=== PATIENT | male | born 1975 | race Caucasian/White ===

== ENCOUNTER 2018-12-03 22:33 | Emergency (ER) | payer OTHER ==
--- NOTE | 2018-12-03 23:08 | ED ---
General Adult HPI - General Chief complaint: Neuro Symptoms/Deficit Stated complaint: Lft arm Numbness/Nausea Time Seen by Provider: 12/03/18 22:53 Source: patient Mode of arrival: wheelchair Limitations: no limitations - History of Present Illness Initial comments: Dictation was produced using [employer] dictation software. please excuse any grammatical, word or spelling errors. Chief Complaint: 43-year-old male with no significant past medical history presents with left-sided paresthesias History of Present Illness: Patient is a 43-year-old male. Patient was driving up to [place] for . He states during the drive he was experiencing heaviness to his left upper and left lower extremity. Patient denies any medical problems. Denies any history of stroke or CVA. Patient states his symptoms lasted for several minutes. He is asymptomatic at this time. Denies any numbness tingling or paresthesias to his arms or legs. Patient has any facial droop. was at bedside denies any signs of aphasia during the incident. She otherwise has been feeling well. He does feel little deconditioned given that his job is very sedentary. The ROS documented in this emergency department record has been reviewed and confirmed by me. Those systems with pertinent positive or negative responses have been documented in the HPI. All other systems are other negative and/or noncontributory. PHYSICAL EXAM: General Impression: Alert and oriented x3, not in acute distress HEENT: Normocephalic atraumatic, extra-ocular movements intact, pupils equal and reactive to light bilaterally, mucous membranes moist. Cardiovascular: Heart regular rate and rhythm, S1&S2 audible, no murmurs, rubs or gallops Chest: Lungs clear to auscultation bilaterally, no rhonchi, no wheeze, no rales Abdomen: Bowel sounds present, abdomen soft, non-tender, non-distended, no organomegaly Musculoskeletal: Pulses present and equal in all extremities, no peripheral edema Motor: no focal deficits noted Neurological: CN II-XII grossly intact, no focal motor or sensory deficits noted Skin: Intact with no visualized rashes Psych: Normal affect and mood ED course: 43-year-old male presents with neuro symptoms. Patient has NIH of 0. He does report some heaviness feeling to his left palm. He denies any pain complaints. Vital signs upon arrival are within acceptable limits. Patient's clinical presentation is very atypical for a TIA versus CVA at this time. Nonetheless, ED work was performed. CBC, coag panel, metabolic panel, electrolytes were obtained showing no acute processes. Cardiac enzymes negative. Computed tomography scan of the brain and chest x-ray are unremarkable. Patient reevaluated and denies any symptoms at this time. Extensive discussion was held with patient and patient's . Patient's symptoms more consistent with neuropathy. His symptoms are very vague and do not localize to any part of the neurologic system. As the patient what signs and symptoms to look for that would discuss stroke versus TIA. Patient agrees that his symptoms are consistent with cerebrovascular accident. Patient clear for discharge. Return parameters were discussed in detail with patient and patient's family member. They will go nearby and will return to the emergency department immediately with any hesitations of his symptoms. Patient given aspirin. Patient discharged EKG interpretation: Ventricular rate 62, normal sinus rhythm,. Interval 152, QS 94, QTC 46. No UT prolongation, no QTC prolongation, no ST or T-wave changes noted. Overall, this EKG is unremarkable - Related Data Home Medications Medication Instructions Recorded Confirmed No Known Home Medications 12/03/18 12/03/18 Allergies Allergy/AdvReac Type Severity Reaction Status Date / Time No Known Allergies Allergy Verified 12/03/18 23:03 Review of Systems ROS Statement: Those systems with pertinent positive or pertinent negative responses have been documented in the HPI. ROS Other: All systems not noted in ROS Statement are negative. Past Medical History Past Medical History: No Reported History History of Any Multi-Drug Resistant Organisms: None Reported Additional Past Surgical History / Comment(s): right leg surgery, rotator cuff left shoulder. Past Psychological History: No Psychological Hx Reported Smoking Status: Never smoker Past Alcohol Use History: Occasional Past Drug Use History: None Reported General Exam Limitations: no limitations Course Vital Signs 12/03/18 12/03/18 12/03/18 22:37 22:46 23:00 Temperature 97.9 F Pulse Rate 75 60 Respiratory 18 18 Rate Blood Pressure 133/86 133/82 O2 Sat by Pulse 98 97 97 Oximetry 12/03/18 12/03/18 12/03/18 23:15 23:30 23:45 Temperature Pulse Rate 58 L 66 61 Respiratory 14 14 20 Rate Blood Pressure 139/88 122/83 111/79 O2 Sat by Pulse 98 98 97 Oximetry 12/04/18 12/04/18 00:00 00:15 Temperature Pulse Rate 56 L 59 L Respiratory 18 20 Rate Blood Pressure 112/73 108/79 O2 Sat by Pulse 96 96 Oximetry Medical Decision Making - Lab Data Result diagrams: 12/03/18 22:50 12/03/18 22:50 Lab Results 12/03/18 12/03/18 12/03/18 Range/Units 22:50 22:50 22:50 WBC 8.3 (3.8-10.6) k/uL RBC 5.27 (4.30-5.90) m/uL Hgb 15.5 (13.0-17.5) gm/dL Hct 45.0 (39.0-53.0) % MCV 85.5 (80.0-100.0) fL MCH 29.3 (25.0-35.0) pg MCHC 34.3 (31.0-37.0) g/dL RDW 13.2 (11.5-15.5) % Plt Count 180 (150-450) k/uL Neutrophils % 55 % Lymphocytes % 35 % Monocytes % 5 % Eosinophils % 2 % Basophils % 0 % Neutrophils # 4.6 (1.3-7.7) k/uL Lymphocytes # 2.9 (1.0-4.8) k/uL Monocytes # 0.5 (0-1.0) k/uL Eosinophils # 0.1 (0-0.7) k/uL Basophils # 0.0 (0-0.2) k/uL PT 10.0 (9.0-12.0) sec INR 0.9 (<1.2) APTT 25.1 (22.0-30.0) sec Sodium 144 (137-145) mmol/L Potassium 4.1 (3.5-5.1) mmol/L Chloride 111 H (98-107) mmol/L Carbon Dioxide 22 (22-30) mmol/L Anion Gap 11 mmol/L BUN 23 H (9-20) mg/dL Creatinine 1.05 (0.66-1.25) mg/dL Est GFR (CKD-EPI)AfAm >90 (>60 ml/min/1.73 sqM) Est GFR (CKD-EPI)NonAf 86 (>60 ml/min/1.73 sqM) Glucose 99 (74-99) mg/dL Calcium 10.1 (8.4-10.2) mg/dL Ionized Calcium Cassius (4.5-5.3) mg/dL Phosphorus (2.5-4.5) mg/dL Magnesium (1.6-2.3) mg/dL Total Bilirubin 0.7 (0.2-1.3) mg/dL AST 32 (17-59) U/L ALT 47 (21-72) U/L Alkaline Phosphatase 89 (38-126) U/L Troponin I (0.000-0.034) ng/mL Total Protein 8.0 (6.3-8.2) g/dL Albumin 4.9 (3.5-5.0) g/dL 12/03/18 12/03/18 Range/Units 22:50 23:35 WBC (3.8-10.6) k/uL RBC (4.30-5.90) m/uL Hgb (13.0-17.5) gm/dL Hct (39.0-53.0) % MCV (80.0-100.0) fL MCH (25.0-35.0) pg MCHC (31.0-37.0) g/dL RDW (11.5-15.5) % Plt Count (150-450) k/uL Neutrophils % % Lymphocytes % % Monocytes % % Eosinophils % % Basophils % % Neutrophils # (1.3-7.7) k/uL Lymphocytes # (1.0-4.8) k/uL Monocytes # (0-1.0) k/uL Eosinophils # (0-0.7) k/uL Basophils # (0-0.2) k/uL PT (9.0-12.0) sec INR (<1.2) APTT (22.0-30.0) sec Sodium (137-145) mmol/L Potassium (3.5-5.1) mmol/L Chloride (98-107) mmol/L Carbon Dioxide (22-30) mmol/L Anion Gap mmol/L BUN (9-20) mg/dL Creatinine (0.66-1.25) mg/dL Est GFR (CKD-EPI)AfAm (>60 ml/min/1.73 sqM) Est GFR (CKD-EPI)NonAf (>60 ml/min/1.73 sqM) Glucose (74-99) mg/dL Calcium (8.4-10.2) mg/dL Ionized Calcium Cassius 5.2 (4.5-5.3) mg/dL Phosphorus 4.1 (2.5-4.5) mg/dL Magnesium 2.0 (1.6-2.3) mg/dL Total Bilirubin (0.2-1.3) mg/dL AST (17-59) U/L ALT (21-72) U/L Alkaline Phosphatase (38-126) U/L Troponin I <0.012 (0.000-0.034) ng/mL Total Protein (6.3-8.2) g/dL Albumin (3.5-5.0) g/dL Disposition Clinical Impression: Neurologic abnormality Disposition: HOME SELF-CARE Condition: Good Instructions (If sedation given, give patient instructions): Paresthesia (ED) Is patient prescribed a controlled substance at d/c from ED?: No Referrals: None,Stated [Primary Care Provider] - 1-2 days Time of Disposition: 00:28
[2018-12-03 23:20] LABS: Basophils % (A) 0 %; Eosinophils # (A) 0.1 k/uL (0-0.7); Eosinophils % (A) 2 %; HGB 15.5 gm/dL (13.0-17.5); Lymphocytes # (A) 2.9 k/uL (1.0-4.8); Lymphocytes % (A) 35 %; MCH 29.3 pg (25.0-35.0); MCHC 34.3 g/dL (31.0-37.0); MCV 85.5 fL (80.0-100.0); Mean Platelet Volume 6.7; Monocytes # (A) 0.5 k/uL (0-1.0); Monocytes % (A) 5 %; Neutrophils # (A) 4.6 k/uL (1.3-7.7); Neutrophils % (A) 55 %; Platelet Count 180 k/uL (150-450); RBC 5.27 m/uL (4.30-5.90); RDW 13.2 % (11.5-15.5); WBC 8.3 k/uL (3.8-10.6)
[2018-12-03 23:29] LABS: Chloride 111 mmol/L (98-107)
[2018-12-03 23:31] LABS: INR 0.9 (<1.2); Partial Thromboplastin Time 25.1 sec (22.0-30.0)
[2018-12-03 23:32] LABS: ALT 47 U/L (21-72); AST 32 U/L (17-59); Albumin 4.9 g/dL (3.5-5.0); Alkaline Phosphatase 89 U/L (38-126); Anion Gap 11 mmol/L; Blood Urea Nitrogen 23 mg/dL (9-20); Calcium 10.1 mg/dL (8.4-10.2); Carbon Dioxide 22 mmol/L (22-30); Glucose 99 mg/dL (74-99); Potassium 4.1 mmol/L (3.5-5.1); Sodium 144 mmol/L (137-145); Total Bilirubin 0.7 mg/dL (0.2-1.3)
[2018-12-03 23:50] LABS: Ionized Calcium 5.2 mg/dL (4.5-5.3)
--- NOTE | 2018-12-03 23:55 | CT ---
EXAM: CT Head Without Intravenous Contrast CLINICAL HISTORY: ITS.REASON CT Reason: Neuro Deficits TECHNIQUE: Axial computed tomography images of the head/brain without intravenous contrast. CTDI is 49.1 mGy and DLP is 1075 mGy-cm. This CT exam was performed using one or more of the following dose reduction techniques: automated exposure control, adjustment of the mA and/or kV according to patient size, and/or use of iterative reconstruction technique. COMPARISON: None. FINDINGS: Brain: Unremarkable. No hemorrhage. No significant white matter disease. No edema. Ventricles: Unremarkable. No ventriculomegaly. Bones/joints: Chronic right lamina papyracea fracture or dehiscence. Soft tissues: Unremarkable. Sinuses: Mucosal thickening in the left sphenoid sinus. Mastoid air cells: Unremarkable as visualized. No mastoid effusion. IMPRESSION: No intracranial hemorrhage or other acute intracranial abnormality.
--- NOTE | 2018-12-03 23:57 | XR ---
EXAM: XR Chest, 2 Views CLINICAL HISTORY: ITS.REASON XR Reason: altered mental status TECHNIQUE: Frontal and lateral views of the chest. COMPARISON: None available. FINDINGS: Lungs: Unremarkable. No consolidation. Pleural space: Unremarkable. No pneumothorax. Heart: Unremarkable. No cardiomegaly. Mediastinum: Unremarkable. Bones/joints: Degenerative change in the spine. IMPRESSION: No acute cardiopulmonary abnormality.
[2018-12-03 23:58] LABS: Phosphorus 4.1 mg/dL (2.5-4.5)
[2018-12-04] MEDS ORDERED: ASPIRIN 81 MG PO STA (00:27)
[2018-12-04 00:54] VITALS: PULSE 58
[2018-12-04 01:16] VITALS: BP 123/79; RESP 16; TEMP 98.4
[2018-12-07 07:35] LABS: Glucose,Whole Blood 102 mg/dL (75-99)
== END 2018-12-04 01:00 | disposition home or self-care (01) ==
LOC: EC 22:33
DX: R29.818 Other symptoms and signs involving the nervous system (principal); R20.2 Paresthesia of skin; R11.0 Nausea; R20.0 Anesthesia of skin
CPT/HCPCS: 36415; 70450; 71046; 80053; 82330; 83735; 84100; 84484; 85025; 85610; 85730; 93005; 99284